=== PATIENT | female | born 1970 | race African-American/Black ===

== ENCOUNTER 2016-11-04 21:07 | Emergency (ER) | payer BC ==
[~2016-11-04] VITALS: Ht 175.3 cm; Wt 71.7 kg
[2016-11-04 21:10] VITALS: BP 131/69
[2016-11-04] MEDS ORDERED: FLUORESCEIN OPTH STRIP 1 MG ONE (21:37)
[2016-11-04] MEDS ORDERED: TETRACAINE 0.5% OPTH SOL 2 ML BTL OP ONE (21:50)
[2016-11-04] MEDS ORDERED: FLUORESCEIN OPTH STRIP 1 MG OP ONE (21:50)
[2016-11-04 21:55] VITALS: BP 105/69
== END 2016-11-04 21:55 | disposition home or self-care (01) ==
LOC: MED 21:07
DX: H10.9 Unspecified conjunctivitis (principal)
CPT/HCPCS: 99283